=== PATIENT | male | born 1940 | race Caucasian/White ===

== ENCOUNTER 2019-09-07 10:40 | Emergency (ER) | payer MEDICARE, SELFPAY ==
--- NOTE | ~2019-09-07 | CT_ITS ---
EXAMINATION: CT abdomen pelvis wo con DATE: 09/07/2019 12:40 INDICATION: Constipation and lower abdominal pain TECHNIQUE: Computed tomography (CT) of the abdomen and pelvis was performed without intravenous contr ast. The dose-length product (DLP) was 1206.51 mGy-cm. Automated exposure control and iterative recon struction technique were employed. COMPARISON: 07/26/2017 FINDINGS: Minimal dependent atelectasis is present in the lung bases. The heart size is normal. There is mild elevation of the right hemidiaphragm. The liver, spleen, gallbladder, and adrenal glands are normal. Punctate calcifications of the pancreas likely reflects chronic pancreatitis. There is a 2 m m stone at the left ureterovesicular junction which causes mild left hydroureteronephrosis. Peripelvi c cysts are noted in the kidneys. There is a 1.7 cm cyst of the right kidney lower pole. There is shannan cified atherosclerosis of the aorta and many of the other arteries. No pathologically enlarged abdomi nal or pelvic lymph nodes are identified. There is no free intraperitoneal gas or evidence of bowel o bstruction. The appendix is normal. Diastases recti is noted. There is severe lumbar spondylosis. IMPRESSION: 1. 2 mm stone at the left ureterovesicular junction causing mild left hydroureteronephrosis. Reviewed, dictated and finalized at location A. IMPRESSION: 1. 2 mm stone at the left ureterovesicular junction causing mild left hydrouret eronephrosis.
--- NOTE | ~2019-09-07 | XR_ITS ---
EXAMINATION: XR abdomen/kub 1V INDICATION: Left flank pain TECHNIQUE: Supine views of the abdomen were obtained on 2 radiographs. COMPARISON: CT from today FINDINGS: The 2 mm left ureterovesicular junction stone described on CT is not definitely seen. A mod erate volume of colonic stool is present. There is severe lumbar spondylosis. The bowel gas pattern i s normal. IMPRESSION: 1. Known left ureterovesicular junction stone not identified. Reviewed, dictated and finalized at location A.
[2019-09-07 11:00] VITALS: BP 162/75; PULSE 53; RESP 18; TEMP 36.1; O2SAT 100
[2019-09-07 11:35] LABS: Basophils Absolute Auto 0.1 K/mm3 (0.0-0.1); Basophils Percent Auto 0.8 % (0.2-1.2); Eosinophils Absolute Auto 0.3 K/mm3 (0-0.3); Eosinophils Percent Auto 3.2 % (0-4.4); Hematocrit 40.6 % (42.0-52.0); Hemoglobin 13.4 g/dL (14.0-18.0); Immature Granulocyte Absolute 0.03 K/mm3 (0.00-0.031); Immature Granulocyte Percent A 0.4 % (0-0.5); Lymphocytes Absolute Auto 0.96 K/mm3 (0.9-3.2); Lymphocytes Percent Auto 12.2 % (18.3-44.2); Mean Corpuscular Hemoglobin 31.2 pg (26-34); Mean Corpuscular Volume 94.4 fl (80-100); Mean Platelet Volume 10.8 fl (7.4-10.4); Monocytes Absolute Auto 0.4 K/mm3 (0.1-0.6); Monocytes Percent Auto 5.2 % (2.6-8.5); Neutrophils Absolute Auto 6.2 K/mm3 (1.3-6.7); Neutrophils Percent Auto 78.2 % (45.5-73.1); Platelet Count Result 196 k/mm3 (150-375); Red Cell Distribution Width 13.2 % (11.5-14.5); White Blood Count 7.9 K/mm3 (4.5-10.0)
[2019-09-07 11:48] LABS: Alanine Aminotransferase 17 U/L (4-50); Albumin Level 4.1 g/dL (3.5-5.1); Alkaline Phosphatase 96 U/L (38-126); Aspartate Amino Transferase 27 U/L (17-59); Bilirubin,Total 0.6 mg/dL (0.2-1.3); Blood Urea Nitrogen 27 mg/dL (9-20); Calcium 9.3 mg/dL (8.4-10.2); Carbon Dioxide 28 mmol/L (22-30); Chloride 102 mmol/L (98-107); Estimated CRCL calculation 61 ml/min; Estimated Glomerular Filt Rate > 60; Glucose 119 mg/dL (75-110); Lipase 64 U/L (23-300); Potassium 4.3 mmol/L (3.4-5.0); Sodium 135 mmol/L (137-145)
[2019-09-07] MEDS: ONDANSETRON INJ 4 MG/2 ML VIAL IV PUSH (11:51)
[2019-09-07] MEDS: FAMOTIDINE 20 MG/2 ML VIAL IV PUSH (11:51)
[2019-09-07] MEDS: SODIUM CHLORIDE 0.9% IV 1,000 ML 999 ML IV CONT ×2 (11:51→12:47)
[2019-09-07 12:05] LABS: Add Urine Microscopic? YES; Appearance Urine Clear (Clear); Bilirubin Urine Negative (Negative); Blood Urine 2+ (Negative); Color Urine Yellow (Yellow); Glucose Urine UA Negative (Negative); Ketones Urine Negative (Negative); Leukocyte Esterase Ur Negative LEU/UL (Negative); Mucus Urine Rare /lpf; Nitrate Urine Negative (Negative); Protein Urine Negative (Negative); RBC Urine 51-75 /hpf (0-2); Specific Grav Ur 1.026 (1.001-1.035); Squamous Epithelial Cell Urine Rare /hpf (Few); Urobilinogen Urine Negative mg/dL (<2.0); WBC Urine 0-3 /hpf
[2019-09-07] MEDS: MORPHINE SULFATE 4 MG/ML INJ IV PUSH (12:53)
--- NOTE | 2019-09-07 13:15 | ED.ABDPAIN ---
HPI - Abdominal Pain General Chief Complaint: Abdominal Pain <Erik Cárdenas PA-C - Last Filed: 09/07/19 13:27> Stated Complaint: abd pain & back pain, constipation <Erik Cárdenas PA-C - Last Filed: 09/07/19 13:27> Time Seen by Provider: 09/07/19 11:22 <Erik Cárdenas PA-C - Last Filed: 09/07/19 13:27> Source: patient <Erik Cárdenas PA-C - Last Filed: 09/07/19 13:27> Mode of arrival: ambulatory <Erik Cárdenas PA-C - Last Filed: 09/07/19 13:27> Limitations: no limitations <Erik Cárdenas PA-C - Last Filed: 09/07/19 13:27> History of Present Illness HPI narrative: Patient is a 78-year-old male who presents with a one-day duration of left flank pain noting some nausea intermittent colicky sharp stabbing pain nothing is made better or worse denies similar occurrence in the past has not taken anything for his symptoms presents in acute pain distress. <Erik Cárdenas PA-C - Last Filed: 09/07/19 13:27> Related Data Home Medications: Home Medications Medication Instructions Recorded Confirmed allopurinol 300 mg PO DAILY 09/07/19 09/07/19 ketorolac 1 drp OPHTHALMIC (EYE) TID 09/07/19 09/07/19 losartan 100 mg PO DAILY 09/07/19 09/07/19 <Erik Cárdenas PA-C - Last Filed: 09/07/19 13:27> Allergies/Adverse Reactions: Allergies Allergy/AdvReac Type Severity Reaction Status Date / Time No Known Allergies Allergy Unverified 09/07/19 11:04 <Erik Cárdensa PA-C - Last Filed: 09/07/19 13:27> Review of Systems Review of Systems: All systems reviewed & are unremarkable except as noted in HPI and below <Erik Cárdenas PA-C - Last Filed: 09/07/19 13:27> PMFSH Past Medical History Medical History: Medical History Arthritis Hypertension <RYAN Kim Last Filed: 09/07/19 13:27> Social History Social History: Social History Smoking status: Never smoker <Erik Cárdenas PA-C - Last Filed: 09/07/19 13:27> Exam Narrative: Exam Narrative: GENERAL: Well-appearing, well-nourished, and in acute pain HEAD: Normocephalic, atraumatic. EYES: PERRLA and EOMI. ENT: Nares clear, no rhinorrhea or epistaxis. Mucous membranes moist. Oropharynx without tonsillar hypertrophy exudate or other lesions. NECK: Supple. No adenopathy or masses. CHEST: Clear to auscultation. No respiratory distress. No wheezes rales or rhonchi HEART: Regular rate and rhythm. No murmur heard. Normal peripheral pulses. ABDOMEN: Soft, nontender, nondistended EXTREMITIES: Normal range of motion. No edema. SKIN: Warm, dry, no rash. NEURO: No focal deficits. Alert and oriented x3. Cranial nerves II through XII grossly intact. PSYCH: Normal mood and affect. <Erik Cárdenas PA-C - Last Filed: 09/07/19 13:27> Course Course Emergency Course: Patient in the room aware of case findings treatment plan and diagnosis given medications in the emergency department felt appropriate for outpatient reevaluation <Erik Cárdenas PA-C - Last Filed: 09/07/19 13:27> Vital Signs Vital signs: Vital Signs Temperature 97.0 F L 09/07/19 11:00 Pulse Rate 53 L 09/07/19 11:00 Respiratory Rate 18 09/07/19 11:00 Blood Pressure 162/75 H 09/07/19 11:00 Pulse Oximetry 100 09/07/19 11:00 Temperature 97.0 F L 09/07/19 11:00 Pulse Rate 62 09/07/19 13:53 Respiratory Rate 18 09/07/19 13:53 Blood Pressure 132/78 09/07/19 13:53 Pulse Oximetry 99 09/07/19 13:53 <Erik Cárdenas PA-C - Last Filed: 09/07/19 13:27> Vital Signs Temperature 97.0 F L 09/07/19 11:00 Pulse Rate 53 L 09/07/19 11:00 Respiratory Rate 18 09/07/19 11:00 Blood Pressure 162/75 H 09/07/19 11:00 Pulse Oximetry 100 09/07/19 11:00 Temperature 97.0 F L 09/07/19 11:00 Pulse Rate 62 09/07/19 13:53 Respiratory Rate 1
[2019-09-07] MEDS: KETOROLAC 15 MG/ML VIAL (*BKC) IV PUSH (13:48)
[2019-09-07 13:53] VITALS: BP 132/78; PULSE 62; RESP 18; O2SAT 99
== END 2019-09-07 13:58 | disposition home or self-care (01) ==
PROVIDERS: Emergency Medicine Emergency Medical Services; Emergency Provider Emergency Medicine; PCP Family Medicine Adolescent Medicine
DX: N13.2 Hydronephrosis with renal and ureteral calculous obstruction (principal); M19.90 Unspecified osteoarthritis, unspecified site; I10 Essential (primary) hypertension
CPT/HCPCS: 36415; 74018; 74176; 80053; 81001; 83690; 85025; 96361; 96374; 96375; 99284; J1885; J2270; J2405; J7030

== ENCOUNTER → 2020-08-14 01:42 | Outpatient (CLI) | payer MEDICARE, SELFPAY ==
[2020-08-14 19:56] LABS: SARS-CoV-2 RNA PCR Negative
== END ==
PROVIDERS: PCP Family Medicine Adolescent Medicine; Visit Provider Internal Medicine Gastroenterology
DX: Z01.812 Encounter for preprocedural laboratory examination (principal); Z20.822 Contact with and (suspected) exposure to COVID-19
CPT/HCPCS: C9803; U0003; U0005

== ENCOUNTER 2020-08-17 03:19 | Day surgery (SDC) | payer MEDICARE, SELFPAY ==
[2020-08-06 13:02] VITALS: BMI 30.9
[2020-08-17 08:31] VITALS: BP 125/75; PULSE 68; RESP 18; TEMP 36.1; O2SAT 100
[2020-08-17] MEDS: LACTATED RINGERS 1,000 ML 150 ML IV CONT (08:46)
--- NOTE | 2020-08-17 08:51 | P.PNAN_ITS ---
Anes - Initial Pre Proc Eval Procedure: Operation Date: 08/17/20 09:45 Proposed Procedures p Screening Colonoscopy - Vijay Barnes MD Date/Time: 08/17/20 08:51 Surgeon: Vijay Barnes MD Pre Op Diagnosis: family hx colon CA Patient Data Age: 79 Gender: M Height: 6 ft Weight: 101 kg Last Vital Signs Temp 97.0 F L 08/17/20 08:31 Pulse 68 08/17/20 08:31 Resp 18 08/17/20 08:31 BP 125/75 08/17/20 08:31 Pulse Ox 100 08/17/20 08:31 Allergies Allergy/AdvReac Type Severity Reaction Status Date / Time No Known Allergies Allergy Verified 08/17/20 08:30 Home Medications Medication Instructions Recorded Confirmed Type allopurinol 300 mg PO DAILY 09/07/19 08/06/20 History losartan 100 mg PO DAILY 09/07/19 08/06/20 History aspirin [Adult Low Dose Aspirin] 81 mg PO DAILY 08/06/20 08/06/20 History Patient hx anesthesia problems: none Family hx anesthesia problems: none [facility] Past Medical History Medical History (Updated 09/08/19 @ 00:01 by Marj Deras) Arthritis Hypertension Social History Social History Smoking status: Former smoker Tobacco type: cigarettes Smoking end date: 03/26/78 Alcohol intake: never Substance use: never Substance use type: does not use Living arrangements: with family Gender identity (if verbalized by the patient): Male Spiritual care concerns: No Anes - Eval Final PreProcedure Day of Procedure 08/17/20 08:51 Patient weight: obese Heart: regular rate and rhythm Lungs: clear to auscultation Airway: Mallampati scale class II Neurological: alert and oriented Last oral intake: >/= 8 hours ASA classification: III Emergent: no Anesthetic plan: proceed Anesthesia type and monitoring: general GIVS and standard monitoring Informed Consent: The patient's anesthetic plan and its attendant risks and benefits were discussed with the patient/family/POA. Questions were solicited and answers provided to the satisfaction of the patient/family/POA.
--- NOTE | 2020-08-17 08:59 | WPDGICN ---
Assessment and Plan Assessment and plan (1) Family history of colon cancer in father: Code(s): Z80.0 - Family history of malignant neoplasm of digestive organs Status: Acute Assessment and Plan: Plan is for screening colonoscopy now and this should be considered at 5 year intervals in the future. Because of less frequent bowel movements patient may benefit from MiraLax on an every 2-3 day basis. GI Consult Note Consult date/time: 08/17/20 08:59 HPI: Khari Spicer is a 79 year old male Presents for screening colonoscopy. Patient has history of colon polyps in the past. Family history is significant his father has had colon cancer. Patient himself had colon polyps in the past as well. His current weight appetite is normal. Bowel movements typically have been every 3 days but more recently has been every 4-5 days. He states he has difficulty passing stool. He a is currently on fiber supplements which has failed to improve his recent bowel habits. He denies any bleeding. No or significant abdominal pain. His weight has remained stable. Review of Systems Review of Systems: All systems reviewed & are unremarkable except as noted in HPI and below PMFSH Past Medical History Medical History (Updated 08/17/20 @ 09:02 by Vijay Barnes MD) Arthritis Hypertension Social History Social History Smoking status: Former smoker Tobacco type: cigarettes Smoking end date: 03/26/78 Alcohol intake: never Substance use: never Substance use type: does not use Living arrangements: with family Gender identity (if verbalized by the patient): Male Spiritual care concerns: No Meds Home Medications and Allergies Home Medications Medication Instructions Recorded Confirmed Type allopurinol 300 mg PO DAILY 09/07/19 08/06/20 History losartan 100 mg PO DAILY 09/07/19 08/06/20 History aspirin [Adult Low Dose Aspirin] 81 mg PO DAILY 08/06/20 08/06/20 History Allergies Allergy/AdvReac Type Severity Reaction Status Date / Time No Known Allergies Allergy Verified 08/17/20 08:30 Vital Signs Vital Signs - 24 hr 08/17/20 08:31 Temperature 97.0 F L Pulse Rate 68 Respiratory Rate 18 Blood Pressure 125/75 Pulse Oximetry 100 Exam Narrative: Exam Narrative: Physical exam reveals patient be alert. Vital signs stable. HEENT exam is unremarkable. Patient is anicteric. Lungs are clear to auscultation and percussion. Heart is without murmur or extra sounds. Abdominal exam bowel sounds are present soft nontender with no organomegaly. Digital external rectal exam is normal.
[2020-08-17 09:37] VITALS: BP 103/55; PULSE 53; RESP 22; O2SAT 99
[2020-08-17 09:47] VITALS: BP 115/59; PULSE 50; RESP 22; O2SAT 99
[2020-08-17 09:57] VITALS: BP 132/69; PULSE 50; RESP 20; O2SAT 99
== END 2020-08-17 10:16 | disposition home or self-care (01) ==
PROVIDERS: PCP Family Medicine Adolescent Medicine; Visit Provider Internal Medicine Gastroenterology
PROC: 0DJD8ZZ Inspection of Lower Intestinal Tract, Via Natural or Artificial Opening Endoscopic (ICD-10-PCS; CPT 45378; principal; 2020-08-17 09:45)
DX: Z12.11 Encounter for screening for malignant neoplasm of colon (principal); Z80.0 Family history of malignant neoplasm of digestive organs; Z86.010 Personal history of colon polyps; K64.8 Other hemorrhoids; I10 Essential (primary) hypertension; M19.90 Unspecified osteoarthritis, unspecified site; Z87.891 Personal history of nicotine dependence
CPT/HCPCS: G0105; C9803; J2001; J2704; J7120; U0003; U0005

== ENCOUNTER → 2020-11-08 10:40 | Outpatient (CLI) | payer MEDICARE, SELFPAY ==
--- NOTE | ~2020-11-08 | XR_ITS ---
EXAMINATION: XR knee RT min 4V DATE: 11/08/2020 10:59 INDICATION: Right knee pain. TECHNIQUE: 4 views of right knee were obtained. COMPARISON: None. FINDINGS: There is a medial compartment arthroplasty with subsidence of the tibial component. No frac ture. No periprosthetic lucency to suggest loosening or infection. There is severe osteoarthritis of lateral and patellofemoral compartments. There is a small knee joint effusion with loose body. IMPRESSION: 1. Severe right knee osteoarthritis. 2. Medial compartment arthroplasty with subsidence of the tibial component. 3. Small right knee joint effusion with loose body. Reviewed, dictated and finalized at location B.
== END ==
PROVIDERS: PCP Family Medicine Adolescent Medicine; Visit Provider Family Medicine Adolescent Medicine
DX: M25.561 Pain in right knee (principal); M17.11 Unilateral primary osteoarthritis, right knee; Z96.651 Presence of right artificial knee joint; M25.461 Effusion, right knee; M23.41 Loose body in knee, right knee
CPT/HCPCS: 73564

== ENCOUNTER 2021-12-05 14:00 | Emergency (ER) | payer MEDICARE, SELFPAY ==
--- NOTE | ~2021-12-05 | XR_ITS ---
EXAM: XR hip LT 2V w AP pelvis, XR femur LT min 2V DATE: 12/05/2021 16:09 HISTORY: fall injury TODAY, DISTAL MID SHAFT PAIN . COMPARISON: None available. FINDINGS: Left knee total arthroplasty without evident complication Decreased mineralization. No fra cture or dislocation. No lytic or blastic lesion. Mild left and moderate right superior joint space n arrowing. Right hip subchondral sclerosis and osteophytosis. Degenerative changes in the lumbar spine . Trochanteric and pelvic enthesopathy. No erosion or periosteal change. Vascular calcifications. IMPRESSION: No acute osseous finding in the pelvis, left hip, or left femur. Reviewed, dictated and finalized at location K. IMPRESSION: No acute osseous finding in the pelvis, left hip, or left femur.
[2021-12-05 15:07] VITALS: BP 123/69; PULSE 56; RESP 18; TEMP 36.1; O2SAT 100
--- NOTE | 2021-12-05 15:30 | ED.FALL ---
HPI - Fall General Chief Complaint: Fall Stated Complaint: fall Time Seen by Provider: 12/05/21 15:16 History of Present Illness HPI Narrative: 81-year-old male presents to the emergency room for evaluation of left posterior leg pain. Patient states that he tripped in the driveway while washing the car and hyperextended his leg. Reports pain on the upper posterior left leg that is worse with ambulation. Patient unable to ambulate due to pain. Denies any other injuries. Related Data Home Medications Medication Instructions Recorded Confirmed aspirin 81 mg tablet 81 mg PO DAILY 08/06/20 07/01/21 Allergies Allergy/AdvReac Type Severity Reaction Status Date / Time No Known Allergies Allergy Verified 11/02/21 10:08 Review of Systems Review of Systems: CONSTITUTIONAL: Denies fever, chills, or sweats. EYES: Denies visual changes, redness, or discharge. ENT: Denies rhinorrhea, congestion, sore throat, or otalgia. CARDIOVASCULAR: Denies chest pain, palpitations, or edema. RESPIRATORY: Denies cough or dyspnea. GASTROINTESTINAL: Denies abdominal pain, nausea, vomiting, or diarrhea. GENITOURINARY: Denies dysuria or hematuria. SKIN: Denies rash or itching. MUSCULOSKELETAL: Reports left leg pain NEUROLOGIC: Denies headache, numbness, dizziness, or weakness. PSYCHIATRIC: Denies anxiety or depression. 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 Family History Family History Father Carcinoma of colon Colon polyp Mother Alzheimer's dementia Sibling Diabetes mellitus Carcinoma of colon Colon polyp Sibling Renal cancer Grandparent Carcinoma of colon Colon polyp Diabetes mellitus Social History Social History Smoking status: Former smoker Tobacco type: cigarettes Smoking end date: 03/26/78 Alcohol intake: never Substance use: never Substance use type: does not use Gender identity (if verbalized by the patient): Male Sexual Orientation (if Verbalized by the Patient): Straight or Heterosexual Spiritual care concerns: No Agree to blood products: Yes Exam Narrative: GENERAL: Well-appearing, well-nourished, no physical limitations, and in no acute distress. HEAD: Normocephalic, atraumatic. EYES: Conjunctivae normal, PERRLA and EOMI. CHEST: Clear to auscultation. No respiratory distress. No wheezes rales or rhonchi. No tenderness. HEART: Regular rate and rhythm. No murmur heard. Normal peripheral pulses. BACK: No cervical/thoracic/lumbar tenderness, step-offs, bony abnormality; FROM EXTREMITIES: LLE: Tenderness to the left hamstring. Pain with leg in extension and when knee is flexed SKIN: Warm, dry, no rash. No noted wounds NEURO: No focal deficits. Alert and oriented x3. MAEW. CN's II-XI intact bilaterally, normal gait PSYCH: Cooperative. Normal mood and affect. Course Course Emergency Course: 1630: Knee immobilizer applied. Patient able to ambulate with walker assist. We will send patient home with prescription of Skelaxin follow-up with orthopedics. Vital Signs Vital signs: Vital Signs Temperature 36.1 C L 12/05/21 15:07 Pulse Rate 56 L 12/05/21 15:07 Respiratory Rate 18 12/05/21 15:07 Blood Pressure 123/69 12/05/21 15:07 Pulse Oximetry 100 12/05/21 15:07 Oxygen Delivery Room Air 12/05/21 15:07 Temperature 36.1 C L 12/05/21 15:07 Pulse Rate 56 L 12/05/21 15:07 Respiratory Rate 18 12/05/21 15:07 Blood Pressure 123/69 12/05/21 15:07 Pulse Ox
--- NOTE | 2021-12-05 16:50 | PC.NURSE ---
pt ambulated in chopra with knee brace and use of a walker. gait was steady, ERP notified.
[2021-12-05 17:04] VITALS: BP 126/80; PULSE 60; RESP 18; TEMP 36.6; O2SAT 100
== END 2021-12-05 17:10 | disposition home or self-care (01) ==
PROVIDERS: Emergency Provider Nurse Practitioner Family; PCP Family Medicine Adolescent Medicine
DX: S76.912A Strain of unspecified muscles, fascia and tendons at thigh level, left thigh, initial encounter (principal); W18.40XA Slipping, tripping and stumbling without falling, unspecified, initial encounter; M19.90 Unspecified osteoarthritis, unspecified site; I10 Essential (primary) hypertension
CPT/HCPCS: 73502; 73552; 99283

== ENCOUNTER 2023-04-02 07:45 | Outpatient (CLI) | payer MEDICARE, SELFPAY | END 2023-04-02 07:46 | disposition home or self-care (01) | LOC: ANHAUDIO 07:45 | PROVIDERS: PCP Family Medicine Adolescent Medicine; Visit Provider Family Medicine Adolescent Medicine | DX: H91.90 Unspecified hearing loss, unspecified ear (principal) | CPT/HCPCS: 92557; 92567 ==

== ENCOUNTER 2024-02-20 14:15 | Outpatient (CLI) | payer MEDICARE, SELFPAY ==
--- NOTE | ~2024-02-20 | XR_ITS ---
3 VIEWS LUMBAR SPINE Ordering provider: Marcus Starkey MD History: . M54.16 - Radiculopathy, lumbar region . Comparison: February 02, 2016 FINDINGS: VERTEBRAL BODIES: Minimal anterolisthesis at the level of L4-L5. Levoscoliosis. No visible acute fra cture or subluxation. Degenerative changes of the spine. Chronic loss of volume is seen in T10 12 and T11. DISK SPACES: Severe narrowing of the disc L1-L2, L2-L3, L3-L4, L4-L5 and L5-S1. Multilevel facet joint disease. SOFT TISSUES: Aortic calcification. IMPRESSION: No acute osseous abnormality lumbar spine. Multilevel degenerative disc. Reviewed, dictated and finalized at location A. L TUNER
== END 2024-02-20 14:16 | disposition home or self-care (01) ==
LOC: MICIMG 14:15
PROVIDERS: PCP Family Medicine Adolescent Medicine; Visit Provider Family Medicine Adolescent Medicine
DX: M51.369 Other intervertebral disc degeneration, lumbar region without mention of lumbar back pain or lower extremity pain (principal); M21.372 Foot drop, left foot
CPT/HCPCS: 72100

== ENCOUNTER 2024-03-13 15:43 | Outpatient (CLI) | payer MEDICARE, SELFPAY ==
--- NOTE | ~2024-03-13 | MR_ITS ---
EXAMINATION: MR lumbar spine wo con DATE: 03/13/2024 16:25 INDICATION: Left-sided lumbar radiculopathy. Left foot drop. TECHNIQUE: Magnetic resonance imaging (MRI) of the lumbar spine was performed without intravenous con trast. Sequences included sagittal T2-weighted FSE, sagittal T2-weighted FS FSE, sagittal T1-weighted FSE, and axial T2-weighted FSE. COMPARISON: Lumbar spine radiographs 02/20/2024 FINDINGS: There is 12 degrees levoscoliosis of lumbar spine. There is 4 mm anterolisthesis of L3 on L 4, 7 mm anterolisthesis of L4 on L5, and 3 mm anterolisthesis of L5 on S1. There is mild chronic ante rior wedging of T12 vertebral body. There is mildly decreased disc height at T12-L1, moderately decre ased disc height at L1-L2, mildly decreased disc height at L2-L3, and moderately decreased disc heigh t at L3-L4, L4-L5, and L5-S1. There is ligamentum flavum hypertrophy at the lumbar disc levels. The d istal spinal cord signal intensity is normal. The conus medullaris is at T12. The following disc leve ls are specifically discussed: L1-L2: The disc is bulging. There is severe bilateral facet joint osteoarthritis. There is moderate r ight and mild left neural foraminal stenosis. There is mild central canal stenosis. L2-L3: The disc is bulging and has an annular fissure. There is severe bilateral facet joint osteoart hritis. There is moderate bilateral neural foraminal stenosis. There is severe central canal stenosis . L3-L4: The disc does not extend beyond the endplate margin. There is severe bilateral facet joint ost eoarthritis. There is mild bilateral neural foraminal stenosis. There is mild central canal stenosis. L4-L5: The disc does not extend beyond the endplate margin. There is severe bilateral facet joint ost eoarthritis. There is mild bilateral neural foraminal stenosis. There is mild central canal stenosis. L5-S1: The disc is bulging with superimposed right subarticular zone extrusion with mass effect on ri ght S1 nerve root in right lateral recess. There is severe bilateral facet joint osteoarthritis. Ther e is mild bilateral neural foraminal stenosis. There is mild central canal stenosis. There is severe stenosis of right lateral recess. IMPRESSION: 1. Severe lumbar spondylosis. Reviewed, dictated and finalized at location A. SERVICE
== END 2024-03-13 15:44 | disposition home or self-care (01) ==
LOC: MICIMG 15:44
PROVIDERS: PCP Family Medicine Adolescent Medicine; Visit Provider Family Medicine Adolescent Medicine
DX: M47.816 Spondylosis without myelopathy or radiculopathy, lumbar region (principal); M21.372 Foot drop, left foot
CPT/HCPCS: 72148

== ENCOUNTER 2024-06-16 10:09 | Outpatient (CLI) | payer MEDICARE, SELFPAY ==
--- NOTE | ~2024-06-16 | MR_ITS ---
EXAMINATION: MR brain/brain stem wo con DATE: 06/16/2024 10:46 INDICATION: Amnesia TECHNIQUE: Magnetic resonance imaging (MRI) of the brain and brainstem was performed without intraven ous contrast. Sequences included sagittal and axial T1-weighted SE, axial diffusion-weighted FS SE, a xial T2*-weighted GRE, axial T2-weighted FLAIR, and axial T2-weighted FSE. Apparent diffusion coeffic ient (ADC) maps were created. COMPARISON: Head CT dated 07/11/2017 FINDINGS: There are no areas of restricted diffusion to suggest acute infarction. No intracranial hemorrhage or abnormal intracranial mass lesion. There are few scattered small foci of nonspecific increased T2-we ighted signal intensity in the cerebral white matter, predominantly involving the deep and periventri cular white matter which is well within normal limits for age. There are no intraparenchymal signal a bnormalities seen on the other pulse sequences. Symmetric prominence of the sulci and subarachnoid sp aces overlying the convexities consistent with mild age-appropriate diffuse cerebral volume loss. Th e ventricles are symmetric and normal in size. There are no abnormal extra-axial fluid collections. F low voids are seen in the cerebral arteries on the T2-weighted sequences consistent with their expect ed patency. Left vertebral artery is dominant. Changes of bilateral intraocular lens replacement. Vi sualized orbits and soft tissues are unremarkable. There are no areas of abnormal enhancement on the post contrast images. IMPRESSION: 1. Normal aging brain. No acute intracranial process. Reviewed, dictated and finalized at location B.
== END 2024-06-16 10:10 | disposition home or self-care (01) ==
PROVIDERS: PCP Family Medicine Adolescent Medicine; Visit Provider Family Medicine Adolescent Medicine
DX: R41.3 Other amnesia (principal)
CPT/HCPCS: 70551

== ENCOUNTER 2024-07-23 11:53 | Emergency (ER) | payer MEDICARE, SELFPAY ==
--- NOTE | 2024-07-23 11:55 | ED.FALL ---
HPI - Fall General Chief Complaint: Fall Stated Complaint: FALL Time Seen by Provider: 07/23/24 11:54 Source: patient Mode of arrival: ambulatory Limitations: no limitations History of Present Illness HPI Narrative: Patient is an 83-year-old male who presents with left shoulder pain, left forearm skin tears and left episcopal pain after fall today. Patient states he did hit his episcopal and then landed on left side. Patient states he has foot drop and went to step in the foot did not move causing him to fall. Patient states he remembers the whole thing and did not have any dizziness or lightheadedness that preceded fall. Denies any LOC, headache, vision changes, dizziness, nausea, vomiting. States it has been at least 30 years since a tetanus shot. Patient still has full range of motion to left shoulder it is just sore. Patient is on a blood thinners other than daily aspirin. Related Data Home Medications ?Medication ?Instructions ?Recorded ?Confirmed ?Last Taken ?Type aspirin 81 mg tablet 81 mg PO .QOD 07/09/23 07/23/24 Unknown History acetaminophen 325 mg tablet 325 mg PO Q6H PRN fever or pain 04/02/24 07/23/24 Unknown History (Tylenol) Allergies Allergy/AdvReac Type Severity Reaction Status Date / Time latex Allergy Rash Verified 07/23/24 12:14 Review of Systems Review of Systems: All systems reviewed & are unremarkable except as noted in HPI and below Constitutional: Constitutional: Denies body ache(s), Denies chills, Denies fatigue, Denies fever(s), Denies headache(s), Denies malaise and Denies weakness Eyes: Eyes: Denies blurry vision, Denies irritation and Denies loss of vision ENT: Denies otalgia, Denies headache(s), Denies nasal discharge, Denies sinus pain and Denies sore throat Cardiovascular: Cardiovascular: Denies chest pain, Denies irregular heart rhythm and Denies dyspnea Respiratory: Respiratory: Denies dyspnea Gastrointestinal: Gastrointestinal: Denies abdominal pain, Denies melena, Denies hematochezia, Denies diarrhea, Denies nausea and Denies vomiting Musculoskeletal: Musculoskeletal: Denies back pain, Denies myalgias and Reports arthralgias Integumentary/Breasts: Skin/Breast: Denies pruritus and Denies rash Neurologic: Denies headache(s), Denies loss of vision and Denies weakness Psychiatric: Psychiatric: Reports no additional psychiatric complaints Endocrine: Endocrine: Denies fatigue PMFSH Past Medical History Medical History Anxiety History of acute pancreatitis 2018 Ureteral calculus 2019 left Normal colonoscopy 08/13 Repeat 08/18 History of gout Hypertension Arthritis Surgical History Surgical History History of unicondylar arthroplasty of right knee 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 Family History Family History Father Carcinoma of colon Colon polyp Mother Alzheimer's dementia Sibling Diabetes mellitus Carcinoma of colon Colon polyp Sibling Renal cancer Grandparent Carcinoma of colon Colon polyp Diabetes mellitus Social History Social History Smoking status: Former smoker Tobacco type: cigarettes Smoking end date: 03/26/78 Alcohol intake: never Substance use: never Substance use type: does not use Living arrangements: with family Occupation/Education: retired Gender identity (if verbalized by the patient): Male Sexual Orientation (if Verbalized by the Patient): Straight or Heterosexual Spiritual care concerns: No Agree to blood products: Yes Comments At time of signature, agree with nursing past medical, surgical, social and family history. There is no relevant family history pertinent to the presenting complaint. Exam Const: General: cooperative, healthy appearing, comfortable, no acute distress and well nourished Nutritional Appearance: well nourished Orientation/consciousness: patient oriented x3 Limitations: no limitations HENMT: Head: normal to inspection, normocephalic, atraumatic and scalp tenderness (Left episcopal, no bruising or abrasion) Ears: hearing grossly normal bilaterally and external ears normal Face/Nose/Sinus: Normal external nose present, normal facial exam and face symmetric Face and sinus: normal facial exam and face symmetric Mouth: Yes lip normal Eyes: General: appearance normal, both eyes and all related structures Alignment and Position: alignment normal and position normal Periorbital: periorbital findings normal Eyelids: eyelids normal Pupils: Equal, round and reactive pupils present EOM: EOMs intact bilaterally Neck: Neck: normal visual inspection, full ROM and supple Chest: Chest palpation & inspection: normal inspection of the chest Resp: Effort & Inspection: normal respiratory effort and able to speak in complete sentences Auscultation: clear to auscultation bilaterally Cardio: Rate: regular rate Rhythm: regular rhythm Heart sounds: S1 normal heart sound present and S2 normal heart sound present GI: Inspection: normal to inspection Skin: General skin exam: normal color and no rashes or lesions noted Neuro: General: patient oriented x3 and moves all extremities Cranial nerves: Yes Equal, round and reactive pupils present Speech: normal speech Gait exam (Neuro): Normal gait present Extrem: General: normal to inspection, full ROM and no edema Left upper extremity: shoulder/upper arm inspection abnormal, tenderness of the scapula (top ) and other (trapezius muscle tenderness on palpation), axillary nerve sensory function normal and normal ROM; no abrasions, no ecchymosis and no deformity, elbow/forearm normal to inspection, normal ROM, abrasion (9 different skin tears to left forearm) and distal pulses intact; no tenderness and no swelling, wrist normal to inspection, normal ROM and radial pulse present; no tenderness and no swelling and hand normal to inspection, normal capillary refill, neuromotor exam normal, neurosensory exam normal, tendon exam normal, normal ROM of fingers and no swelling; no tenderness Elbow/forearm/wrist images:  1. skin tear 2x1 cm 2. skin tear 2x2 cm 3. row of 7 small 1x1 cm skin tears Psych: Appearance: grossly normal and well kempt Mental Status: mental status grossly normal Speech and movement: Normal speech and movement present Affect: normal affect Attitude: cooperative Thought process: Normal thought process present Course Course Emergency Course: Patient is aware of diagnosis, understands and agrees to treatment plan. Anticipatory guidance given. Patient agrees to follow-up as directed and is aware of reasons to seek care at the emergency department. Portions of this record may have been created with voice recognition software Level of Care: Express Care Visit Vital Signs Vital signs: Vital Signs Temperature 36.2 C L 07/23/24 11:56 Pulse Rate 53 L 07/23/24 11:56 Respiratory Rate 19 07/23/24 11:56 Blood Pressure 173/77 H 07/23/24 11:56 Pulse Oximetry 100 07/23/24 11:56 Oxygen Delivery Room Air 07/23/24 11:56 Temperature 36.2 C L 07/23/24 11:56 Pulse Rate 53 L 07/23/24 11:56 Respiratory Rate 19 07/23/24 11:56 Blood Pressure 144/81 H 07/23/24 12:50 Pulse Oximetry 100 07/23/24 11:56 Oxygen Delivery Room Air 07/23/24 11:56 Reviewed MDM - Fall MDM Narrative Medical decision making narrative: Wound was irrigated and cleansed. Surgicel applied and wrapped with Kerlix and Coban. Instructions on care provided to patient and . Based on [place] CT head rule consideration for head CT was discussed with patient and . They declined transfer to emergency department at this time. Educated patient and on red flag symptoms including increased confusion, agitation, vomiting, dizziness, headache patient should go straight to emergency department. Tetanus shot updated Pt well hydrated appearing, in no respiratory distress, hemodynamically stable. Recommend supportive care. The patient is stable at time of discharge the clinical impression was discussed and the patient was given the opportunity to ask questions, which were addressed as completely as possible given the information available at present. Anticipatory guidance and return to care precautions were discussed and the importance of primary care follow-up was stressed and encouraged. The patient voiced understanding of the plan, indications to return, and the need for follow-up. Exam findings show no acute concerns or changes Patient is appropriate for outpatient treatment and follow-up. Differential Diagnosis Differential diagnosis: Likely syncope, dislocation of shoulder region, concussion without loss of consciousness and other (Shoulder contusion, fall, skin tear) Medical Records Attestation: I reviewed the patient's medical records. Discharge Plan Discharge Clinical Impression: Skin tear Fall Qualifiers: Encounter type: initial encounter Qualified Code(s): W19.XXXA - Unspecified fall, initial encounter Contusion of left shoulder Qualifiers: Encounter type: initial encounter Qualified Code(s): S40.012A - Contusion of left shoulder, initial encounter Patient Disposition: Home Condition: Stable Instructions: Fall Prevention for Older Adults (ED), Skin Tear (ED) Additional Instructions: You reported you fell.After any fall we expect you to be very sore over the next several days to 1 week. This is because your body was moved in different directions. Also sometimes people tense up during a fall. Either way, the muscles were strained after a fall and can be expected to be sore. This soreness is usually worse on the 2nd, 3rd and 4th days following a fall. For pain, you may take: Tylenol 650-1000mg by mouth every 4-6 hours. Do not exceed 4000mg in 24 hours. Advil (Ibuprofen) 600 mg by mouth every 6 hours. Do not exceed 2400mg in 24 hours. 8 AM: Tylenol 11 AM: Ibuprofen 2 PM: Tylenol 5 PM: Ibuprofen 8 PM: Tylenol 11 PM: Ibuprofen 2 AM: Tylenol 5 AM: Ibuprofen Using Topicals such as biofreeze, bengay or aspercream will also help. Drink plenty of fluids and get plenty of rest to help your body heal. Wound dressed with Surgicel and sterile gauze. Apply Bactroban after warm soaks BID once Surgicel is off. Take antibiotics as prescribed. Keep wound covered. Go to the emergency department if you have worsening redness, swelling or pus. If you have any headaches, vision changes, persistent vomiting, confusion, or lightheadedness go straight to the emergency department. Patient Language: Telugu Prescriptions: New cephalexin 500 mg capsule 500 mg PO QID 7 Days Qty: 28 0RF mupirocin 2 % ointment 1 applic topical BID Qty: 15 0RF No Action acetaminophen [Tylenol] 325 mg tablet 325 mg PO Q6H PRN (Reason: fever or pain) aspirin 81 mg tablet 81 mg PO .QOD meloxicam 15 mg tablet 15 mg PO DAILY Qty: 90 3RF allopurinol 300 mg tablet See Rx Instructions .ROUTE .COMPLEX Qty: 90 3RF Dose Instruction: TAKE 1 TABLET BY MOUTH EVERY DAY Rx Instructions: TAKE 1 TABLET BY MOUTH EVERY DAY losartan 100 mg tablet 100 mg PO DAILY Qty: 90 2RF bupropion HCl [Wellbutrin XL] 150 mg tablet extended release 24 hr 150 mg PO QAM Qty: 30 5RF Follow-up/Referrals: Marcus Starkey MD [Primary Care Provider] - 3 Days Time of Disposition: 12:44
[2024-07-23 11:56] VITALS: BP 173/77; PULSE 53; RESP 19; TEMP 36.2; O2SAT 100
[2024-07-23] MEDS: TETANUS,DIPHTHERIA,AC PERTUSSIS ADULT (0.5 ML) BOOSTRIX IM (12:37)
[2024-07-23] MEDS: CELLULOSE OXIDIZED 2 x 14 INCH 1 PKT XX (12:39)
[2024-07-23 12:50] VITALS: BP 144/81
== END 2024-07-23 12:50 | disposition home or self-care (01) ==
PROVIDERS: Emergency Provider Nurse Practitioner Family; PCP Family Medicine Adolescent Medicine
DX: S51.812A Laceration without foreign body of left forearm, initial encounter (principal); W19.XXXA Unspecified fall, initial encounter; S40.012A Contusion of left shoulder, initial encounter; Z23 Encounter for immunization; I10 Essential (primary) hypertension; M19.90 Unspecified osteoarthritis, unspecified site; M10.9 Gout, unspecified; Z96.652 Presence of left artificial knee joint; Z87.891 Personal history of nicotine dependence; Z79.82 Long term (current) use of aspirin
CPT/HCPCS: 90471; 90715; 99213; G0463